=== PATIENT | female | born 1945 | race Caucasian/White ===

== ENCOUNTER 2017-01-11 13:17 | Emergency (ER) | payer MEDICARE, OTHER ==
[2017-01-11] MEDS ORDERED: POLY-VI-SOL WIT50 ML PO (13:34)
[2017-01-11 14:11] LABS: BASO % 0.4 % (0-2); EOS % 3.7 % (0-7); EOSINOPHIL ABSOLUTE COUNT 0.3 tho/cmm (0.0-0.7); HCT-HEMATOCRIT 44.8 % (34.0-49.0); HGB-HEMOGLOBIN 15.3 gm/dl (12.0-15.5); IMMATURE GRANULOCYTES ABSOLUTE 0.01 tho/cmm (0-0.03); IMMATURE GRANULOCYTES PERCENT 0.1 % (0-0.3); LYMPH % 35.7 % (20-45); LYMPH ABSOLUTE COUNT 2.5 tho/cmm (0.8-4.5); MCH (MEAN CORPUSCULAR HGB) 31.5 pg (28.0-32.0); MCHC MEAN CORPUSCULAR HGB CONC 34.2 % (32.0-36.0); MCV (MEAN CELL VOLUME) 92.2 fl (82.0-96.0); MEAN PLATELET VOLUME 10.9 cmc (9.4-12.4); MONO % 6.6 % (0-12); MONOCYTE ABSOLUTE COUNT 0.5 tho/cmm (0.0-1.2); NEUTROPHIL ABSOLUTE COUNT 3.8 tho/cmm (1.6-8.0); NEUTROPHIL-AUTOMATED 3.8 tho/cmm (1.6-8.0); NEUTROPHILS % 53.5 % (40-80); PLATELET COUNT 242 tho/cmm (150-450); RED BLOOD COUNT 4.86 mil/cmm (4.00-5.20); RED CELL DISTRIBUTION WIDTH 13.5 % (12.4-16.4); WHITE BLOOD COUNT 7.1 tho/cmm (4.0-10.0)
[2017-01-11 14:26] LABS: ANION GAP 9 mmol/L (0-20); BLOOD UREA NITROGEN 15 mg/dl (6-24); CALCIUM 9.4 mg/dl (8.5-10.5); CARBON DIOXIDE-VENOUS 30 mmol/L (22-32); CHLORIDE 105 mmol/l (96-110); CREATININE 0.78 mg/dl (0.50-1.10); GLUCOSE 99 mg/dL (70-110); POTASSIUM 3.8 mmol/L (3.7-5.1); SODIUM 140 mmol/L (135-145); eGFR VALUE FOR BLACK 87 mL/Min
[2017-01-11] MEDS ORDERED: PREDNISONE10 M1 PO (14:59)
[2017-01-11] MEDS ORDERED: VIBRAMYCIN100 M1 PO (14:59)
[2017-01-11] MEDS ORDERED: NORCO 5-325 TA1 EACH PO (14:59)
== END 2017-01-11 15:09 ==
LOC: EDMED 13:17
PROVIDERS: Emergency Medicine
DX: R51 Headache (principal); J32.2 Chronic ethmoidal sinusitis; Z98.51 Tubal ligation status